=== PATIENT | male | born 1990 | race African-American/Black ===

== ENCOUNTER 2021-09-26 18:40 | Emergency (ER) | payer MEDICAID ==
[~2021-09-26] VITALS: Ht 188 cm; Wt 114.0 kg
[2021-09-26 23:32] LABS: BASOPHILS % 0.7 % (0.0-2.0); EOSINOPHILS % 2.1 % (0.0-5.0); HEMATOCRIT. 46.5 % (42.0-52.0); HEMOGLOBIN. 14.9 g/dL (14.0-18.0); MEAN CORPUSCULAR HEMOGLOBIN 28.6 pg (28.0-32.0); MEAN PLATELET VOLUME 7.5 fl (7.4-10.4); MONOCYTES % 8.4 % (2.0-8.0); NEUTROPHILS % 51.8 % (40.0-76.0); PLATELET 277 x1000/uL (130-400); RED BLOOD CELL COUNT 5.22 mill/uL (4.7-6.1); RED CELL DISTRIBUTION WIDTH 14.4 % (11.6-14.6)
[2021-09-27] MEDS ORDERED: DOCU100T PO (00:15)
[2021-09-27 00:23] VITALS: BP 116/76
== END 2021-09-27 00:27 | disposition home or self-care (01) ==
LOC: ER 18:40
DX: K64.8 Other hemorrhoids (principal)
CPT/HCPCS: 36415; 85025; 99283